=== PATIENT | male | born 1965 | race Caucasian/White ===

== ENCOUNTER 2017-03-25 06:17 | Day surgery (SDC) | payer OTHER ==
--- NOTE | ~2017-03-25 | OP ---
Record Of Operation [facility] [address] [place]. [address] NAME: MARY AMATO : 65 STATUS : REG [facility]#: [id number] AGE: 51 ADM/REG DATE : 03/25/17 MR#: [id number] REPORT SERV DATE: 03/25/17 DICTATED BY: MILAGROS MARTINEZ DATE: 03/25/17 REPORT STATUS : Draft TRANSCRIBED BY: MODL DATE: 03/25/17 DATE OF PROCEDURE: 03/25/2017 PREOPERATIVE DIAGNOSIS: A 9 mm left renal calculus. POSTPROCEDURE DIAGNOSIS: A 9 mm left renal calculus. PROCEDURE: Left ESWL. MANAGER CABLE: Eugenie. ANESTHESIA: MAC. HISTORY: Mr. Amato is a 51-year-old white male with a symptomatic left renal calculus. He requested left ESWL. Risks specific to this procedure include, but not limited to bleeding, infection, incomplete stone fragmentation, Steinstrasse, hematoma, injury to neighboring organs, need for further urologic procedures, anesthesia complications, and so forth. I answered all of his questions, I believe to his satisfaction. Subsequently, he requested the procedure and provided informed written consent. PROCEDURE IN DETAIL: On 03/25/2017, the patient was brought to the lithotripsy suite. He was placed supine on the Dornier Compact Delta II Lithotriptor. Biplanar fluoroscopy was used to localize the left renal calculus. A time-out was called. The proper patient and procedure were confirmed. Levaquin was administered as a perioperative antibiotic. At this time, the Anesthesia team established monitored anesthesia care. Subsequently, we delivered a total of 2500 shocks at a maximum power of 4 in rate of 120 shocks per minute to the stone. Fluoroscopy time was 2 minutes 9 seconds. The patient tolerated the procedure well without immediate complications, and was transferred to the recovery area in stable condition. RAC/EVENSL Milagros Martinez M.D. / [id number] CC: Baltazar Mondragon
[~2017-03-25 06:17] MED LIST: ADVIL PO; T PO
[2017-03-25 07:29] LABS: HEMATOCRIT 40.6 % (40.0-51.0); HEMOGLOBIN 14.1 g/dL (13.6-17.8)
== END 2017-03-25 11:51 | disposition home or self-care (01) ==
LOC: SDC 06:17
PROVIDERS: Urology
PROC: 0TF4XZZ Fragmentation in Left Kidney Pelvis, External Approach (ICD-10-PCS; principal; 2017-03-25 08:00)
DX: N20.0 Calculus of kidney (principal); Z98.890 Other specified postprocedural states
CPT/HCPCS: 50590; 74000; 85014; 85018; 93005; A9270-GY; J2250; J2405